=== PATIENT | female | born 1940 | race Caucasian/White ===

== ENCOUNTER 2017-04-28 07:52 | Day surgery (SDC) | payer MEDICARE, OTHER ==
[~2017-04-28] VITALS: Ht 169.5 cm; Wt 88.5 kg
[~2017-04-28 07:52] MED LIST: ALLOPURINOL300 MG PO; AMITRIPTYLIN10 MG; ASPIRIN EC81 MG PO; AVAPRO75 MG PO; CALCIUM/D250 MG PO; COQ-10100 MG PO; FISH OIL500 MG PO; FUROSEMIDE40 MG PO; LASIX40 MG PO; LEVOTHYROXIN125 MC1 PO; LOSARTAN POT50 MG PO; MOTRIN800 MG PO; MULTI VITAMN OR; OMEPRAZOLE20 M2 PO; PREMARIN VAG0.625 MG VA; PRILOSEC10 M1 OR; RED YEAST RICE600 MG PO; SPIRONOLACTONE25 MG PO; SYNTHROID137 MCG PO; VICODIN1 TAB PO; ZOCOR20 MG PO
[2017-04-28 09:49] VITALS: BP 154/79
== END 2017-04-28 10:15 | disposition home or self-care (01) ==
LOC: ENDO 07:52
PROVIDERS: ATTEND Surgery
PROC: 0DBK8ZX Excision of Ascending Colon, Via Natural or Artificial Opening Endoscopic, Diagnostic (ICD-10-PCS; principal; 2017-04-28)
DX: Z12.11 Encounter for screening for malignant neoplasm of colon (principal); D12.2 Benign neoplasm of ascending colon; K57.30 Diverticulosis of large intestine without perforation or abscess without bleeding; E03.9 Hypothyroidism, unspecified; I12.9 Hypertensive chronic kidney disease with stage 1 through stage 4 chronic kidney disease, or unspecified chronic kidney disease; N18.9 Chronic kidney disease, unspecified

== ENCOUNTER 2020-08-31 12:09 | Emergency (ER) | payer MEDICARE ==
[~2020-08-31] VITALS: Ht 170.2 cm; Wt 97.0 kg
[~2020-08-31 12:09] MED LIST changes: +MEDDOSEPAK PO
[2020-08-31 12:53] LABS: IMMATURE GRANULOCYTES 0.4 % (0.0-5.0); MEAN CELL VOLUME 94.2 fL CALC (80.0-100.0); MEAN CORPUSCULAR HGB 29.5 pG CALC (26.0-32.0); MEAN CORPUSCULAR HGB CONC 31.3 g/dL CAL (32.0-36.0); NEUT# 5.01 thou/uL (2.00-7.15); RED BLOOD COUNT 3.97 mill/uL (4.20-5.60); RED CELL DISTRI WIDTH 15.4 % (11.5-15.5)
[2020-08-31 13:04] LABS: HEMATOCRIT 37.4 % (37.0-47.0); HEMOGLOBIN 11.7 g/dl (12.0-16.0)
[2020-08-31 13:26] LABS: ALBUMIN 4.1 g/dL (3.2-5.0); ALKALINE PHOSPHATASE 93 u/l (38-126); ANION GAP 12 (6-22 (CALC)); BILIRUBIN, TOTAL 0.6 mg/dL (0.0-1.4); BUN 16 mg/dL (8-23); BUN/CREATININE RATIO 15 (12-20 (CALC)); CARBON DIOXIDE 24 mmol/l (22-30); CHLORIDE 107 mmol/l (95-108); CREATININE 1.1 mg/dL (0.5-1.0); GFR 48 ML/MIN (>=60 (CALC)); GFR FOR AFR.AMER. 58 ML/MIN (>=60 (CALC)); POTASSIUM 3.7 mmol/l (3.5-5.1); SGOT/AST 24 u/l (9-36); SODIUM 139 mmol/l (137-146)
[2020-08-31] MEDS ORDERED: ALLOPURINOL300 MG PO (13:55)
[2020-08-31 14:37] VITALS: BP 163/82
== END 2020-08-31 14:35 ==
LOC: ED 12:09
PROVIDERS: Family Medicine
DX: S06.5X0A Traumatic subdural hemorrhage without loss of consciousness, initial encounter (principal); S06.6X0A Traumatic subarachnoid hemorrhage without loss of consciousness, initial encounter; S00.03XA Contusion of scalp, initial encounter; M25.531 Pain in right wrist; I10 Essential (primary) hypertension; W10.9XXA Fall (on) (from) unspecified stairs and steps, initial encounter; Y92.89 Other specified places as the place of occurrence of the external cause
CPT/HCPCS: J1953

== ENCOUNTER 2022-09-28 10:23 | Day surgery (SDC) | payer MEDICARE ==
[~2022-09-28] VITALS: Ht 170.2 cm; Wt 86.2 kg
[~2022-09-28 10:23] MED LIST changes: +LEVOTHROID125 MCG PO; +REPATHA140 MG/ML IM
[2022-09-28 14:11] VITALS: BP 158/70
== END 2022-09-28 13:45 | disposition home or self-care (01) ==
LOC: ENDO 10:23 → ORM 12:55 → ENDO 13:45 → ORM 14:30
PROVIDERS: ATTEND Internal Medicine Gastroenterology
PROC: 0DBK8ZX Excision of Ascending Colon, Via Natural or Artificial Opening Endoscopic, Diagnostic (ICD-10-PCS; principal; 2022-09-28)
PROC: 0DBL8ZX Excision of Transverse Colon, Via Natural or Artificial Opening Endoscopic, Diagnostic (ICD-10-PCS; 2022-09-28)
PROC: 0DBH8ZX Excision of Cecum, Via Natural or Artificial Opening Endoscopic, Diagnostic (ICD-10-PCS; 2022-09-28)
DX: D12.2 Benign neoplasm of ascending colon (principal); D12.0 Benign neoplasm of cecum; D12.3 Benign neoplasm of transverse colon; K57.30 Diverticulosis of large intestine without perforation or abscess without bleeding; K64.8 Other hemorrhoids; K21.9 Gastro-esophageal reflux disease without esophagitis; E03.9 Hypothyroidism, unspecified; I12.9 Hypertensive chronic kidney disease with stage 1 through stage 4 chronic kidney disease, or unspecified chronic kidney disease; N18.30 Chronic kidney disease, stage 3 unspecified; Z80.0 Family history of malignant neoplasm of digestive organs; Z86.010 Personal history of colon polyps

== ENCOUNTER 2024-07-22 19:13 | Emergency (ER) | payer MEDICARE ==
[~2024-07-22] VITALS: Ht 170.2 cm; Wt 86.0 kg
[2024-07-22] MEDS ORDERED: levoFLOXacin 500 MG TAB PO ONE (20:00)
[2024-07-22] MEDS ORDERED: LEVOFLOXACIN750 MG PO (20:05)
[2024-07-22 20:06] VITALS: BP 121/70
[2024-07-22 20:08] VITALS: BP 121/70
[2024-07-22 20:15] VITALS: BP 126/67
== END 2024-07-22 20:18 | disposition home or self-care (01) ==
LOC: ED 19:13
DX: T81.41XA Infection following a procedure, superficial incisional surgical site, initial encounter (principal); L03.115 Cellulitis of right lower limb; B96.5 Pseudomonas (aeruginosa) (mallei) (pseudomallei) as the cause of diseases classified elsewhere; I10 Essential (primary) hypertension; Y83.8 Other surgical procedures as the cause of abnormal reaction of the patient, or of later complication, without mention of misadventure at the time of the procedure; Z85.820 Personal history of malignant melanoma of skin

== ENCOUNTER 2024-07-24 14:32 | Emergency (ER) | payer MEDICARE ==
[~2024-07-24] VITALS: Ht 170.2 cm; Wt 88.4 kg
[2024-07-24] VITALS (10 sets, daily range): BP systolic 114–137; BP diastolic 43–70
[~2024-07-24 14:32] MED LIST changes: +LEVOFLOXACIN750 MG PO
[2024-07-24] MEDS ORDERED: AMLODIPINE BESYL5 MG PO (14:51)
[2024-07-24] MEDS ORDERED: ALLOPURINOL200 MG PO (14:51)
[2024-07-24] MEDS ORDERED: ELIQUIS5 MG PO (14:52)
[2024-07-24] MEDS ORDERED: Meropenem 1 GM in SODIUM CHLORIDE 0.9% 100 ML IV ONE (15:00)
[2024-07-24] MEDS ORDERED: CEFEPIME HYDROCHLORIDE 2 GM in SODIUM CHLORIDE 0.9% 100 ML IV ONE (15:00)
[2024-07-24 15:49] LABS: BASO% 0.2 % (0-3); EOS% 1.3 % (0-8); HEMATOCRIT 42.5 % (37.0-47.0); HEMOGLOBIN 13.7 g/dl (12.0-16.0); IMMATURE GRANULOCYTES 0.3 % (0.0-5.0); LYMPH% 24.1 % (15-41); MEAN CORPUSCULAR HGB 30.3 pG CALC (26.0-32.0); MEAN CORPUSCULAR HGB CONC 32.2 g/dL CAL (32.0-36.0); MONO% 10.4 % (2-13); NEUT% 63.7 % (42-76); RED BLOOD COUNT 4.52 mill/uL (4.20-5.60); RED CELL DISTRI WIDTH 13.6 % (11.5-15.5)
[2024-07-24 16:01] LABS: ALBUMIN 3.9 g/dL (3.2-5.0); BILIRUBIN, TOTAL 0.5 mg/dL (0.02-1.3); CREATININE 1.5 mg/dL (0.5-1.0); POTASSIUM 3.6 mmol/l (3.5-5.1); TOTAL PROTEIN 6.4 g/dL (6.3-8.2)
== END 2024-07-24 18:28 | disposition home or self-care (01) ==
LOC: ED 14:32 → ED-I 16:40 → ED 18:28
PROVIDERS: Family Medicine
DX: S81.801A Unspecified open wound, right lower leg, initial encounter (principal); L08.9 Local infection of the skin and subcutaneous tissue, unspecified; X58.XXXA Exposure to other specified factors, initial encounter; I10 Essential (primary) hypertension; Z86.718 Personal history of other venous thrombosis and embolism
CPT/HCPCS: J0692